=== PATIENT | female | born 1970 | race Caucasian/White ===

== ENCOUNTER → 2017-08-22 | Outpatient (CLI) | payer BC | LOC: FIMAGING 08:38 | PROVIDERS: ATTEND Internal Medicine Hematology & Oncology | DX: Z12.31 Encounter for screening mammogram for malignant neoplasm of breast (principal); Z80.3 Family history of malignant neoplasm of breast | CPT/HCPCS: G0202 ==

== ENCOUNTER 2018-02-05 11:21 | Emergency (ER) | payer BC, OTHER ==
--- NOTE | 2018-02-05 11:57 | CPEKG ---
Heart Rate: 96 RR Interval: 625 P-R Interval: 124 QRSD Interval: 78 QT Interval: 368 QTC Interval: 465 P [place]: 48 QRS [place]: 13 T Wave [place]: 157 EKG Severity - ABNORMAL ECG - EKG Impression: SINUS RHYTHM EKG Impression: LVH WITH SECONDARY REPOLARIZATION ABNORMALITY Electronically Signed By: Mary Carlson 05-Feb-2018 14:35:14
[2018-02-05 12:06] LABS: PLATELET COUNT 327 10^3/uL (150-400)
--- NOTE | 2018-02-05 12:24 | EDPHY ---
H & P Stated Complaint: HTN/FROST Time Seen by Provider: 02/05/18 11:39 HPI/ROS: CHIEF COMPLAINT: Elevated blood pressure HISTORY OF PRESENT ILLNESS: 47-year-old female with a history of Hodgkin's lymphoma and a right subclavian stent (on Coumadin) presents with elevated blood pressure. She was seen in the travel medicine clinic just prior to arrival and her blood pressure was 190/120. She awoke this morning with a moderate headache. She has had frequent headaches recently that are not relieved with ibuprofen and Tylenol. The headaches are intermittent, without clear alleviating or aggravating factors. The headache has improved since arrival to the ED. She has been concerned that she may have high blood pressure. No chest pain or shortness of breath. INR 3 days ago 2.6. REVIEW OF SYSTEMS: complete 10 point ROS negative except at noted in the HPI - Personal History LMP (Females 10-55): Over 28 Days Ago Current Tetanus Diphtheria and Acellular Pertussis (TDAP): No - Medical/Surgical History PMH: Hodgkin's disease, right subclavian stent Hx Asthma: No Hx Chronic Respiratory Disease: No Hx Diabetes: No Hx Cardiac Disease: No Hx Renal Disease: No Hx Cirrhosis: No Hx Alcoholism: No Hx HIV/AIDS: No Hx Splenectomy or Spleen Trauma: No - Social History Smoking Status: Never smoked Alcohol Use: Sober - Physical Exam Exam: General Appearance: Alert, pleasant Eyes: Pupils equal and round, no conjunctival pallor or injection ENT, Mouth: Mucous membranes moist Neck: Normal inspection Respiratory: Lungs are clear to auscultation Cardiovascular: Regular rate and rhythm, no murmur Gastrointestinal: Abdomen is soft and nontender Neurological: A&O, nonfocal, normal gait Skin: Warm and dry Extremities: Normal inspection, no swelling Vascular: Radial pulse 2 + Psychiatric: Mood and affect normal Constitutional: Initial Vital Signs Temperature (C) 36.8 C 02/05/18 11:26 Heart Rate 103 H 02/05/18 11:26 Respiratory Rate 18 02/05/18 11:26 Blood Pressure 167/121 H 02/05/18 11:26 O2 Sat (%) 100 02/05/18 11:26 O2 Delivery Mode Room Air Allergies/Adverse Reactions: CATS Allergy (Mild, Uncoded 02/05/18 11:24) Other-Enter Comments ENVIRONMENTAL Allergy (Mild, Uncoded 02/05/18 11:24) Other-Enter Comments OXYGEN Allergy (Uncoded 02/05/18 11:25) Home Medications: Medication Instructions Recorded Warfarin Sodium [Coumadin] 5 mg PO DAILY16 02/19/10 Northidrone 02/05/18 amLODIPine BESYLATE [Norvasc 5 mg 5 mg PO DAILY #30 tab 02/05/18 (*)] Medical Decision Making - Diagnostics EKG Interpretation: EKG interpreted by me reveals normal sinus rhythm, rate 96, LVH. Interpretation : Abnormal EKG ED Course/Re-evaluation: This patient presents with symptomatic hypertension. Blood pressure is 153/99 now and headache has subsided. I suspect that she has essential hypertension, given recent headaches, LVH by EKG and markedly elevated blood pressure prior to arrival. I will start her on low-dose Norvasc and have her follow up with PCP. Differential Diagnosis: Includes though is not limited to hypertensive emergency such as acute coronary syndrome, ICH, acute renal failure - Data Points Laboratory Results: Laboratory Results 02/05/18 11:52 02/05/18 11:52 Departure - Departure Disposition: Home, Routine, Self-Care Clinical Impression: Hypertension Qualifiers: Hypertension type: essential hypertension Qualified Code(s): I10 - Essential ( primary) hypertension Condition: Good Instructions: Hypertension (ED) Additional Instructions: Take and record your blood pressure twice daily. Referrals: Sandra Asencio NP [Primary Care Provider] - As per Instructions (Call to make an appointment.) Prescriptions: amLODIPine BESYLATE [Norvasc 5 mg (*)] 5 mg PO DAILY #30 tab
[2018-02-05 12:45] VITALS: BP 167/101
== END 2018-02-05 12:45 | disposition home or self-care (01) ==
DX: I10 Essential (primary) hypertension (principal); Z79.01 Long term (current) use of anticoagulants

== ENCOUNTER → 2018-10-03 | Outpatient (CLI) | payer BC | LOC: FIMAGING 08:22 | PROVIDERS: ATTEND Nurse Practitioner Adult Health | DX: Z12.31 Encounter for screening mammogram for malignant neoplasm of breast (principal) ==